=== PATIENT | male | born 2000 | race Caucasian/White ===

== ENCOUNTER → 2018-11-04 10:14 | Outpatient (CLI) | payer OTHER, SELFPAY ==
[2017-08-11 20:11] VITALS: BMI 24.3
[2018-11-04 11:23] LABS: Absolute Lymphocyte Count 1.99 X10^3/ul (0.83-4.51); Absolute Neutrophil Count 3.4 X10^3/uL (2.0-7.7); Basophil# 0.02 X10^3/uL; Basophil% 0.3 % (0-1); Eosinophil# 0.07 X10^3/uL; Eosinophils% 1.1 % (0-5); Hematocrit 47.1 % (40-54); Hemoglobin 15.5 g/dl (13.0-16.5); Lymphocyte # 1.99 X10^3/ul (4.0); Lymphocyte % 32.5 % (19-41); Mean Corp Hgb Conc 32.9 g/gl (32-36); Mean Corpuscular Hgb 30.4 pg (27.0-32.0); Mean Corpuscular Volume 92.4 fL (80-94); Mean Platelet Vol. 9.8 fl (6.2-12.0); Monocyte# 0.66 X10^3/uL; Monocyte% 10.8 % (0-10); Neutrophil # 3.37 X10^3/uL (2.7-7.7); Neutrophil % 55.1 % (47-70); POSITIVE COUNT NO; POSITIVE DIFFERENTIAL NO; POSITIVE MORPHOLOGY NO; Platelet Count 272 K/mm3 (150-450); RBC Distribution Width CV 12.8 % (11.6-14.6); RBC Distribution Width SD 43.3 fl (35.1-43.9); White Blood Count 6.1 K/mm3 (4.4-11.0)
[2018-11-04 11:42] LABS: Erythrocyte Sedimentation Rate 4 mm/hr (0-15)
[2018-11-04 11:50] LABS: AST(SGOT) 15 U/L (15-37); Alanine Aminotransfer ALT/SGPT 24 U/L (16-61); Alkaline Phosphatase 68 U/L (45-117); Anion Gap 6 (5-15); BUN 18 mg/dL (7-18); BUN/Creat Ratio 16.4 RATIO (10-20); Bilirubin, Direct 0.18 mg/dL (0.00-0.30); CRP < 2.90 mg/L (0.0-3.0); Calcium,Total 9.1 mg/dL (8.5-10.1); Chloride 104 mmol/L (98-107); EST Glomerular Filtration Rate 90 mL/min (>60); Est Glom Filt Rate - Afr Amer 109 mL/min (>60); Globulin 3.8 g/dL (2.2-4.2); Glucose 88 mg/dL (74-106); Potassium 4.2 mmol/L (3.5-5.1); Protein, Total 7.8 g/dL (6.4-8.2); Sodium Level 140 mmol/L (136-145)
== END ==
PROVIDERS: Family Provider Family Medicine; PCP Family Medicine; Referring Provider Pediatrics; Visit Provider Pediatrics
DX: K52.9 Noninfective gastroenteritis and colitis, unspecified (principal)
CPT/HCPCS: 36415; 80048; 80076; 85025; 85652; 86140

== ENCOUNTER → 2019-04-06 10:45 | Outpatient (CLI) | payer OTHER, SELFPAY ==
[2019-04-06 11:29] LABS: Erythrocyte Sedimentation Rate 3 mm/hr (0-15)
[2019-04-06 11:31] LABS: Absolute Lymphocyte Count 1.77 X10^3/uL (0.83-4.51); Absolute Neutrophil Count 3.1 X10^3/uL (2.0-7.7); Basophil# 0.05 X10^3/uL; Basophil% 0.9 % (0-1); Eosinophils% 1.8 % (0-5); Hematocrit 48.1 % (40-54); Hemoglobin 16.1 g/dL (13.0-16.5); Lymphocyte # 1.77 X10^3/ul (4.0); Lymphocyte % 31.7 % (19-41); Mean Corp Hgb Conc 33.5 g/dL (32-36); Mean Corpuscular Hgb 30.7 pg (27.0-32.0); Mean Corpuscular Volume 91.6 fL (80-94); Mean Platelet Vol. 9.6 fl (6.2-12.0); Monocyte# 0.51 X10^3/uL; Monocyte% 9.1 % (0-10); NRBC Flagged by Analyzer 0 % (0-5); Neutrophil # 3.14 X10^3/uL (2.7-7.7); Neutrophil % 56.3 % (47-70); Platelet Count 337 K/mm3 (150-450); RBC Distribution Width CV 11.7 % (11.6-14.6); RBC Distribution Width SD 39.3 fl (35.1-43.9); Red Blood Count 5.25 M/mm3 (4.6-6.2); White Blood Count 5.6 K/mm3 (4.4-11.0)
[2019-04-06 12:02] LABS: Vitamin D,25 Hydroxy 28.5 ng/mL (29.95-100.01)
[2019-04-06 12:03] LABS: AST(SGOT) 14 U/L (15-37); Alanine Aminotransfer ALT/SGPT 21 U/L (16-61); Albumin, Serum 4.1 g/dL (3.2-5.0); Alkaline Phosphatase 68 U/L (45-117); Anion Gap 7 (5-15); BUN 14 mg/dL (7-18); BUN/Creat Ratio 13.6 RATIO (10-20); Bilirubin, Direct 0.14 mg/dL (0.00-0.30); CRP < 2.90 mg/L (0.0-3.0); Chloride 106 mmol/L (98-107); Creatinine, Serum 1.03 mg/dL (0.70-1.30); EST Glomerular Filtration Rate 97 mL/min (>60); Est Glom Filt Rate - Afr Amer 117 mL/min (>60); GGTP 20 U/L (15-85); Globulin 3.5 g/dL (2.2-4.2); Glucose 88 mg/dL (74-106); Potassium 4.2 mmol/L (3.5-5.1); Protein, Total 7.6 g/dL (6.4-8.2); Sodium Level 140 mmol/L (136-145)
== END ==
PROVIDERS: Family Provider Family Medicine; PCP Family Medicine; Referring Provider Pediatrics; Visit Provider Pediatrics
DX: K52.9 Noninfective gastroenteritis and colitis, unspecified (principal); D89.9 Disorder involving the immune mechanism, unspecified
CPT/HCPCS: 36415; 80048; 80076; 82306; 82977; 85025; 85652; 86140

== ENCOUNTER → 2019-12-03 12:18 | Outpatient (CLI) | payer OTHER, SELFPAY ==
[2017-08-11 20:11] VITALS: BMI 24.3
[2019-12-03 12:57] LABS: Erythrocyte Sedimentation Rate < 1 mm/hr (0-15)
[2019-12-03 13:00] LABS: Absolute Lymphocyte Count 2.11 X10^3/uL (0.83-4.51); Absolute Neutrophil Count 3.9 X10^3/uL (2.0-7.7); Basophil# 0.03 X10^3/uL; Basophil% 0.5 % (0-1); Eosinophil# 0.04 X10^3/uL; Eosinophils% 0.6 % (0-5); Hematocrit 43.5 % (40-54); Hemoglobin 14.6 g/dL (13.0-16.5); Lymphocyte # 2.11 X10^3/ul (4.0); Mean Corp Hgb Conc 33.6 g/dL (32-36); Mean Corpuscular Hgb 30.9 pg (27.0-32.0); Mean Platelet Vol. 9.6 fl (6.2-12.0); Monocyte# 0.55 X10^3/uL; Monocyte% 8.3 % (0-10); NRBC Flagged by Analyzer 0 % (0-5); Neutrophil # 3.85 X10^3/uL (2.7-7.7); Neutrophil % 58.4 % (47-70); Platelet Count 291 K/mm3 (150-450); RBC Distribution Width CV 12.1 % (11.6-14.6); RBC Distribution Width SD 41.2 fl (35.1-43.9); Red Blood Count 4.73 M/mm3 (4.6-6.2); White Blood Count 6.6 K/mm3 (4.4-11.0)
[2019-12-03 16:27] LABS: AST(SGOT) 18 U/L (15-37); Alanine Aminotransfer ALT/SGPT 24 U/L (16-61); Albumin, Serum 4.1 g/dL (3.2-5.0); Alkaline Phosphatase 56 U/L (45-117); Anion Gap 5 (5-15); BUN 20 mg/dL (7-18); BUN/Creat Ratio 20.3 RATIO (10-20); CRP < 2.90 mg/L (0.0-3.0); Calcium,Total 8.9 mg/dL (8.5-10.1); Chloride 99 mmol/L (98-107); Creatinine, Serum 0.98 mg/dL (0.70-1.30); EST Glomerular Filtration Rate 102 mL/min (>60); Est Glom Filt Rate - Afr Amer 123 mL/min (>60); GGTP 22 U/L (15-85); Globulin 3.4 g/dL (2.2-4.2); Glucose 82 mg/dL (74-106); Potassium 3.7 mmol/L (3.5-5.1); Protein, Total 7.5 g/dL (6.4-8.2); Sodium Level 134 mmol/L (136-145)
== END ==
PROVIDERS: PCP Family Medicine; Referring Provider Pediatrics; Visit Provider Pediatrics
DX: K52.9 Noninfective gastroenteritis and colitis, unspecified (principal); D89.9 Disorder involving the immune mechanism, unspecified
CPT/HCPCS: 36415; 80048; 80076; 82977; 85025; 85652; 86140

== ENCOUNTER 2023-12-23 09:44 | Emergency (ER) | payer OTHER, SELFPAY ==
[2023-12-23 09:44] VITALS: BP 162/99; PULSE 95; RESP 16; TEMP 36.9; O2SAT 100; BMI 24.0
--- NOTE | 2023-12-23 10:05 | EDS_ITS ---
HPI History of Present Illness Chief Complaint: Complaint PFSH PFSH Home Medications adalimumab 40 mg/0.8 mL subcutaneous pen kit (Humira Pen Crohn's[facility] Colitis-Hid Sup Starter) 40 mg IM 08/11/17 [History Last Taken Unknown] hydrocodone-acetaminophen 5-325mg 5mg-325mg 1 - 2 tab PO Q4H PRN PRN Pain ##20 08/11/17 [Rx Last Taken Unknown] Allergy/AdvReac Type Severity Reaction Status Date / Time No Known Allergies Allergy Verified 12/23/23 09:46 Social History Smoking Status: Never smoker EXAM Physical Exam Const Vital Signs: 12/23/23 09:44 12/23/23 11:44 Temperature 98.4 F Temperature Source Temporal Pulse Rate 95 90 Respiratory Rate 16 16 Blood Pressure 162/99 H 155/83 H Blood Pressure Mean 120 107 Pulse Ox 100 99 Oxygen Delivery Method Room Air Room Air [facility] MDM MDM Narrative Medical decision making narrative: HISTORY OF PRESENT ILLNESS: 23-year-old male presents with right-sided testicular pain and swelling for 1 week. He states he has had ongoing constant testicular pain and swelling. He notes he is sexually active with 1 partner. Unprotected. He does not participa te in anal sex. Notes history of chlamydia in remote past. Denies any abdominal pain, vomiting, constipation, diarrhea. Denies any sick contacts. Denies history of abdominal surgery or testicular abnormalities. No family history of testicular cancer REVIEW OF SYSTEMS: Pertinent positives: Testicular pain and swelling Pertinent negatives: Nausea, vomiting, fever, lesions or Rashes to the testicle or scrotum, PHYSICAL EXAM: Nursing triage notes reviewed, Vital signs reviewed Constitutional: please see mdm Abdomen: Soft, there is no tenderness, rigidity, rebound or guarding, no obvious peritoneal signs, no palpable pulsatile abdominal masses, no auscultated abdominal bruit : No CVAT, normal-appearing genitalia, intact cremasteric reflex, no obvious rashes lesions or chancre. Minimal tenderness to palpation of the right testicle no obvious masses palpated no appreciable tenderness over the epididymis no palpable effusion. No evidence of scrotal cellulitis or abscess no crepitus fluctuance induration erythema or warmth noted. Extremities: No edema Skin: No rash or lesions noted MEDICAL DECISION MAKING: Chief Complaint: Testicular pain and External records reviewed: No recent adVanced imaging of the testicles Factors affecting care: Ulcerative colitis Social determinants of health: Sexually active, unprotected History obtained from others: none Consults: none MDM Narrative: Patient was initially hemodynamically stable afebrile. Initial exam without obvious abnormality I considered the following differential diagnosis: Testicular torsion, hydrocele, varicocele, epididymitis, orchitis, testicular mass, STD I treat the patient with oral ibuprofen I obtained an ultrasound to rule out torsion, hydrocele, varicocele, epididymitis, orchitis or mass. I tested his urine for gonorrhea and chlamydia. ALL IMAGES (IF OBTAINED) HAVE BEEN PERSONALLY REVIEWED AND INTERPRETED BY MYSELF. Gonorrhea and Chlamydia negative Scrotal ultrasound shows no evidence of torsion, mass, orchitis or epididymitis showed epididymal cyst as well as a left hydrocele. Will give NSAIDs and recommend urology follow-up The patient and/or family, caregivers express understanding. The patient and/or family, caregivers agrees with the plan. Shared decision making: I will have a discussion with the patient and or visitors regarding risk/benefits of further testing or admission. They will be made aware of of the risk/benefits inherent in this decision they will be given the opportunity to voice understanding. Total critical care time today provided was at least 0 [] minutes. This excludes separately billable procedures. Critical care time (if documented) is secondary to the patient having high probability of clinically significant/life threatening deterioration in the patient's condition which required my urgent intervention. Impression: 1. Testicular pain 2. Epididymal cyst 3. Hydrocele Dispo: Discharge home This note was generated with [employer] dictation software. It may contain incorrect words, spelling, and punctuation that were not noted in review of the chart prior to signing. Radiography Diagnostic Testing: Clinical Impression(s) from Imaging Studies Testicular Ultrasound 12/23/23 10:12 IMPRESSION: Small bilateral epididymal cysts. Small left hydrocele. Electronically Signed: Jim Matthew MD at 12:34 EDT , Discharge Plan Triage Chief Complaint: Complaint ED Provider: Kb Tineo Dx/Rx/DC Orders Prescriptions: No Action adalimumab [Humira Pen [id number] Start] 40 MG/0.8 ML pen injector kit 40 mg IM Patient Comments: EVERY 2 WEEKS hydrocodone-acetaminophen 1 TABLET tablet 1 - 2 tab PO Q4H PRN PRN (Reason: Pain) Qty: 20 0RF Primary Care Provider: Ambika De Jesus Referrals: Rubio Dan MD [Med Staff - Active Staff] - Activity Restrictions/Additional Instructions: Thank you for trusting us with your care today! Please take Tylenol (2 pills, 650 mg), ibuprofen (2 pills, 400 mg) every 6 hours as needed for pain and fever control. Please return to the emergency department if your symptoms change or worsen. Please follow with your primary care physician for further outpatient evaluation and management. Disposition Disposition: Home, Self Care
--- NOTE | 2023-12-23 10:12 | US_ITS ---
STUDY: SCROTUM ULTRASOUND REASON FOR EXAM: Male, 23 years old. One week history of right testicular pain. TECHNIQUE: Ultrasound evaluation of the scrotum was performed with color Doppler and static hay-scale imaging. COMPARISON: None. FINDINGS: RIGHT TESTICLE INTRATESTICULAR: There is a normal size of the right testicle. The right testicle measures 4.7 cm x 2.6 cm x 2.2 cm. There is a homogenous echotexture. There is normal arterial and normal venous vascularity. There is no demonstrated right testicular mass or cyst. EXTRATESTICULAR: The epididymis is normal in size. The epididymis head measures 0.8 cm x 0.6 cm x 1.3 cm. There is normal vascularity of the epididymis. There is a well-defined cystic structure within the epididymis, without internal echoes, consistent with an epididymal cyst. This measures 4 mm x 3 mm x 4 mm. There is no demonstrated hydrocele. There is no demonstrated varicocele. There is no demonstrated extratesticular mass or cyst. LEFT TESTICLE INTRATESTICULAR: There is a normal size of the left testicle. The left testicle measures 4.6 cm x 2.4 cm x 2.2 cm. There is a homogenous echotexture. There is normal arterial and normal venous vascularity. There is no demonstrated left testicular mass or cyst. EXTRATESTICULAR: The epididymis is normal in size. The epididymis head measures 0.8 cm x 0.9 cm x 1.2 cm. There is normal vascularity of the epididymis. There is a well-defined cystic structure within the epididymis, without internal echoes, consistent with an epididymal cyst. This measures 4 mm x 4 mm x 3 mm. There is a small hydrocele. There is no demonstrated varicocele. There is no demonstrated extratesticular mass or cyst. US/Testicular with Arterial Flow IMPRESSION: Small bilateral epididymal cysts. Small left hydrocele. Electronically Signed: Jim Matthew MD at 12:34 EDT ,
[2023-12-23 11:44] VITALS: BP 155/83; PULSE 90; RESP 16; O2SAT 99
[2023-12-23 13:00] VITALS: BP 151/90; PULSE 87; RESP 16; O2SAT 100
[2023-12-23 13:17] VITALS: BP 150/91; PULSE 87; RESP 16; TEMP 36.9; O2SAT 99
== END 2023-12-23 13:18 | disposition home or self-care (01) ==
PROVIDERS: Emergency Provider Emergency Medicine; PCP Family Medicine; Visit Provider Emergency Medicine
DX: N50.811 Right testicular pain (principal); K51.90 Ulcerative colitis, unspecified, without complications; N50.3 Cyst of epididymis; N43.3 Hydrocele, unspecified; N50.89 Other specified disorders of the male genital organs; Z79.899 Other long term (current) drug therapy
CPT/HCPCS: 76870; 87491; 87591; 93976; 99282

== ENCOUNTER → 2024-10-01 | Outpatient (CLI) | payer OTHER, SELFPAY ==
[2024-10-01 16:35] LABS: Hemoglobin A1c 5.2 % (3.8-5.6)
[2024-10-01 16:49] LABS: ALB/GLOB Ratio 1.2 RATIO (0.9-2.4); AST(SGOT) 14 U/L (15-37); Alanine Aminotransfer ALT/SGPT 23 U/L (16-61); Alkaline Phosphatase 59 U/L (45-117); Anion Gap 7 (5-15); BUN 14 mg/dL (7-18); BUN/Creat Ratio 15.5 RATIO (10-20); Calcium,Total 8.8 mg/dL (8.5-10.1); Chloride 104 mmol/L (98-107); Cholesterol 213 mg/dL (200); Creatinine, Serum 0.91 mg/dL (0.70-1.30); EST Glomerular Filtration Rate 107 mL/min (>60); Est Glom Filt Rate - Afr Amer 130 mL/min (>60); Globulin 3.4 g/dL (2.2-4.2); Glucose 88 mg/dL (74-106); High Density Lipoprotein 81 mg/dL; Potassium 3.6 mmol/L (3.5-5.1); Protein, Total 7.4 g/dL (6.4-8.2); Sodium Level 138 mmol/L (136-145); Triglycerides 43 mg/dL; Very Low Density Lipoprotein 9 mg/dL (5-40)
[2024-10-01 23:03] LABS: Absolute Lymphocyte Count 1.43 X10^3/uL (0.83-4.51); Absolute Neutrophil Count 6.2 X10^3/uL (2.0-7.7); Basophil# 0.05 X10^3/uL; Basophil% 0.6 % (0-1); Eosinophil# 0.04 X10^3/uL; Eosinophils% 0.5 % (0-5); Hematocrit 42.9 % (40-54); Hemoglobin 14.7 g/dL (13.0-16.5); Lymphocyte # 1.43 X10^3/ul (0.83-4.51); Lymphocyte % 17.2 % (19-41); Mean Corp Hgb Conc 34.3 g/dL (32-36); Mean Corpuscular Hgb 31.1 pg (27.0-32.0); Mean Corpuscular Volume 90.7 fL (80-94); Mean Platelet Vol. 9.7 fl (6.2-12.0); Monocyte# 0.56 X10^3/uL; Monocyte% 6.7 % (0-10); NRBC Flagged by Analyzer 0 % (0-5); Neutrophil # 6.22 X10^3/uL (2.7-7.7); Neutrophil % 74.8 % (47-70); Platelet Count 320 K/mm3 (150-450); RBC Distribution Width CV 12.2 % (11.6-14.6); RBC Distribution Width SD 40.7 fl (35.1-43.9); Red Blood Count 4.73 M/mm3 (4.6-6.2); White Blood Count 8.3 K/mm3 (4.4-11.0)
== END | disposition home or self-care (01) ==
DX: R00.2 Palpitations (principal); Z13.220 Encounter for screening for lipoid disorders; Z13.1 Encounter for screening for diabetes mellitus
CPT/HCPCS: 36415; 80053; 80061; 83036; 84443; 85025

== ENCOUNTER → 2024-10-10 | Outpatient (CLI) | payer OTHER, SELFPAY ==
--- NOTE | 2024-10-10 06:51 | US_ITS ---
INDICATION: bilateral pain EXAMINATION: Ultrasound US Scrotum (Contents) TECHNIQUE: Realtime ultrasound of the testicles was performed with grayscale, Color Doppler and spectral Doppler analysis. COMPARISON: December 23, 2023 FINDINGS: RIGHT: TESTIS: 4.7 x 2.3 x 2.4 cm. Normal in size and echotexture, without focal lesion. COLOR DOPPLER: Normal arterial flow present in the testicle with monophasic waveforms. EPIDIDYMIS: Normal in size and echotexture, without focal lesion. [Normal color Doppler flow pattern in the epididymis. HYDROCELE: None. VARICOCELE: There is a varicocele present. LEFT: TESTIS: 4.3 x 2.1 x 2.7 cm. Normal in size and echotexture, without focal lesion. COLOR DOPPLER: Normal arterial flow present in the testicle with monophasic waveforms. EPIDIDYMIS: Normal in size and echotexture, without focal lesion. [Normal color Doppler flow pattern in the epididymis. HYDROCELE: None. VARICOCELE: There is a varicocele present. US/Testicular with Arterial Flow IMPRESSION: Bilateral varicoceles. Electronically Signed: Aixa Hancock MD at 14:57 EST ,
== END | disposition home or self-care (01) ==
DX: R00.2 Palpitations (principal); N50.89 Other specified disorders of the male genital organs
CPT/HCPCS: 76870; 93225; 93226; 93976

== ENCOUNTER → 2024-12-13 | Outpatient (CLI) | payer OTHER, SELFPAY ==
--- NOTE | 2024-12-13 13:47 | ECHOD_ITS ---
Reason For Study Reason For Study: Palpitations Procedure This was a 2D Doppler, Color Flow transthoracic echocardiogram. Exam performed in department. Left Ventricle Normal LV size. Left ventricular systolic function is normal. The left ventricular ejection fraction is 60 %. No regional wall motion abnormalities noted. Right Ventricle Normal RV size. Normal systolic function. Atria Normal left atrium. Normal right atrium. Mitral Valve Normal mitral valve. Tricuspid Valve Normal tricuspid valve. Aortic Valve Trisinus/trileaflet aortic valve. Pulmonic Valve Normal pulmonic valve. Great Vessels Normal aortic root. The pulmonary artery is normal size. Inferior vena cava collapse with respiration. Pericardium/Pleural No pericardial effusion. MMode/2D Measurements & Calculations LVIDd: 4.1 cm IVSd: 1.0 cm Ao root diam: 2.9 cm LVIDs: 3.1 cm LVPWd: 0.86 cm RVDd: 3.3 cm FS: 24.9 % LAV(MOD-bp): 33.0 ml LVAd ap4: 31.2 cm2 LVAd ap2: 33.8 cm2 LAV(MOD-bp) Indexed: 18.8 ml/m2 LVLd ap4: 9.5 cm LVLd ap2: 9.8 cm LAV(MOD-sp2): 32.5 ml EDV(MOD-sp4): 87.8 ml EDV(MOD-sp2): 101.1 ml LAV(MOD-sp4): 32.4 ml EDV(sp4-el): 87.0 ml EDV(sp2-el): 98.9 ml LVAs ap4: 18.6 cm2 LVAs ap2: 20.1 cm2 LVLs ap4: 8.1 cm LVLs ap2: 8.4 cm ESV(MOD-sp4): 37.9 ml ESV(MOD-sp2): 41.4 ml ESV(sp4-el): 36.2 ml ESV(sp2-el): 41.0 ml EF(MOD-sp4): 56.9 % EF(MOD-sp2): 59.1 % EF(sp4-el): 58.4 % SV(MOD-sp4): 50.0 ml SV(MOD-sp2): 59.7 ml SV(sp4-el): 50.8 ml SI(MOD-sp4): 28.4 ml/m2 SI(MOD-sp2): 34.0 ml/m2 LA A4 area: 13.7 cm2 LA dimension(2D): 3.2 cm RA A4 area: 13.4 cm2 TAPSE: 1.7 cm Time Measurements MV dec time: 0.15 sec Doppler Measurements & Calculations MV E max familia: 91.6 cm/sec Lat Peak E' Familia: 24.3 cm/sec Med Peak E' Familia: 19.0 cm/sec MV A max familia: 63.6 cm/sec E/E' lat: 3.8 E/E' med: 4.8 MV E/A: 1.4 Ao V2 max: 129.9 cm/sec LV V1 max: 110.6 cm/sec MV dec slope: 603.8 cm/sec2 Ao max P.7 mmHg LV V1 max P.9 mmHg Ao V2 mean: 89.3 cm/sec LV V1 mean P.2 mmHg Ao mean P.6 mmHg LV V1 mean: 84.5 cm/sec Ao V2 VTI: 24.7 cm LV V1 VTI: 23.9 cm AV (velocity ratio): 0.97 PA V2 max: 120.9 cm/sec ECHO/Echo Complete Interpretation Summary Normal LV size. Left ventricular systolic function is normal. The left ventricular ejection fraction is 60 %. Structurally normal valves. Ordering Physician: Paulo Mancera Referring Physician: Paulo Mancera Performed By: Shirin You RDCS
== END | disposition home or self-care (01) ==
LOC: CVS 13:45
DX: R00.2 Palpitations (principal)
CPT/HCPCS: 93306

== ENCOUNTER → 2025-06-05 | Outpatient (CLI) | payer OTHER, SELFPAY ==
--- NOTE | 2025-06-05 17:54 | STRESSREP ---
Stress Test Report Exercise stress test. 25-year-old man with a history of arrhythmia. Stress protocol: Resting EKG demonstrates normal sinus rhythm with a rate of 75 bpm resting blood pressure is 112/64 mmHg. The patient exercised according to the regular [facility] protocol for a total duration of 11-1/2 minutes attaining a maximum heart rate of 193 bpm which was 100% of maximum predicted heart rate; the maximum workload was 13.5 metabolic equivalents. At rest there were no ST or T wave changes noted to suggest ischemia and at peak exercise upsloping ST changes only were noted which did not meet the criteria for ischemia. No clinical angina was noted the test was terminated due to the target heart rate being achieved/fatigue. The peak blood pressure was 152/68 mmHg. Rate-pressure product was 29,300. Conclusion: Stress test with no EKG changes for ischemia at a high workload. No arrhythmias noted.
== END | disposition home or self-care (01) ==
LOC: CVS 11:20
PROVIDERS: Referring Provider Internal Medicine Cardiovascular Disease; Visit Provider Internal Medicine Cardiovascular Disease
DX: R00.2 Palpitations (principal)
CPT/HCPCS: 93017